=== PATIENT | female | born 2005 | race Caucasian/White ===

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

== ENCOUNTER 2023-03-06 09:04 | Outpatient (CLI) | payer OTHER | END 2023-03-06 09:05 | disposition home or self-care (01) | LOC: CSHULT 09:04 | PROVIDERS: ATTEND Family Medicine | DX: Z34.82 Encounter for supervision of other normal pregnancy, second trimester (principal); Z3A.20 20 weeks gestation of pregnancy | CPT/HCPCS: 76805 ==

== ENCOUNTER 2023-06-30 10:36 | Inpatient (IN) | payer OTHER ==
[2023-06-30] MEDS ORDERED: Tranexamic Acid 1,000 MG/10 ML VIAL IVP PRN (11:06)
[2023-06-30] MEDS ORDERED: Lidocaine 1% (PF) 30 ML VIAL SC PRN (11:06)
[2023-06-30] MEDS ORDERED: Ibuprofen 800 MG TAB PO PRN (11:06)
[2023-06-30] MEDS ORDERED: HYDROcodone/Acetaminophen 5/325 mg Tablet PO PRN ×2 (11:06→15:42)
[2023-06-30] MEDS ORDERED: Methylergonovine 0.2 MG/ML VIAL IM PRN (11:06)
[2023-06-30] MEDS ORDERED: Diphenoxylate HCl/Atropine Tablet PO PRN (11:06)
[2023-06-30] MEDS ORDERED: Acetaminophen 500 MG TAB PO PRN (11:06)
[2023-06-30] MEDS ORDERED: hydrALAZINE 20 MG/ML VIAL SLOW IVP PRN ×2 (11:06→15:42)
[2023-06-30] MEDS ORDERED: Carboprost 250 MCG/ML AMP IM PRN (11:06)
[2023-06-30] MEDS ORDERED: Misoprostol 200 MCG TAB PR PRN (11:06)
[2023-06-30] MEDS ORDERED: Ondansetron PF 4 MG/2 ML Vial IVP PRN ×2 (11:06→15:42)
[2023-06-30] MEDS ORDERED: fentaNYL 50 mcg/mL 1 mL Vial SLOW IVP PRN (11:06)
[2023-06-30] MEDS ORDERED: Promethazine HCl 25 MG/ML VIAL IM PRN ×2 (11:06→15:42)
[2023-06-30] MEDS ORDERED: Penicillin G Potassium 5 MILL.UNITS VIAL ONE (11:09)
[2023-06-30] MEDS ORDERED: Oxytocin 30 units/NS 500 ML 500 ML IV SCH (11:15)
[2023-06-30] MEDS ORDERED: Lactated Ringer's 1,000 ML IV SCH (11:15)
[2023-06-30] MEDS ORDERED: Penicillin G Potassium 5 MILL.UNITS in Sodium Chloride 0.9% 100 ML IVPB SCH (11:15)
[2023-06-30 11:27] VITALS: BMI 24.9
[2023-06-30 12:21] LABS: Syphilis Antibody Nonreactive (Nonreactive); Syphilis Antibody Index 0.05 S/CO (<1.00 Non-Reactive)
[2023-06-30 12:23] LABS: HBSAg Index 0.16 S/CO (0-0.99); Hep B Surf Ag - L&D Non-Reactive S/CO (NonReactive)
[2023-06-30 12:35] LABS: Hematocrit 34.4 % (34.9-44.5); Hemoglobin 11.1 g/dL (12.0-15.5); Mean Corpuscular HGB CONC 32.3 g/dL (32.0-36.0); Mean Corpuscular Hemoglobin 28.7 pg (27.0-33.0); Mean Corpuscular Volume 88.9 fl (81.6-98.3); Mean Platelet Volume 11.6 fl (7.4-10.4); Platelet Count 261 10x3/uL (150-450); RBC Distribution Width 14.9 % (11.5-14.5); Red Blood Cell (RBC) Count 3.87 10x6/uL (3.90-5.03); White Blood Cell (WBC) Count 10.3 10x3/uL (3.5-10.5)
[2023-06-30] MEDS ORDERED: Penicillin G 2.5 MILL.units 2.5 MILL.UNITS in Premix 1 BAG IVPB SCH (15:00)
[2023-06-30] MEDS ORDERED: Lanolin Ointment 7 GM TUBE TOP PRN (15:42)
[2023-06-30] MEDS ORDERED: Milk Of Magnesia 30 ML UDCUP PO PRN (15:42)
[2023-06-30] MEDS ORDERED: Boostrix 0.5 ML (Tdap) VIAL (>/=7 yrs of age) IM ONE (15:42)
[2023-06-30] MEDS ORDERED: diphenhydrAMINE 25 MG CAP PO PRN (15:42)
[2023-06-30] MEDS ORDERED: Benzocaine-Menthol 82.5 ML CAN TOP PRN (15:42)
[2023-06-30] MEDS ORDERED: Bisacodyl 10 MG SUPP PR PRN (15:42)
[2023-06-30] MEDS ORDERED: Preparation H Ointment 28 GM TUBE PR PRN (15:42)
[2023-06-30] MEDS: Ibuprofen 800 MG TAB PO SCH (18:28)
[2023-06-30] MEDS: Ferrous Sulfate 325 MG TAB PO SCH (18:31)
[2023-06-30] MEDS: Docusate 100 MG CAP PO SCH (21:10)
[2023-07-01] MEDS: Ibuprofen 800 MG TAB PO SCH ×4 (00:35→23:10)
[2023-07-01] MEDS: Ferrous Sulfate 325 MG TAB PO SCH ×2 (07:46→18:58)
[2023-07-01] MEDS: Prenatal Vitamin 1 TAB PO SCH (09:02)
[2023-07-01] MEDS: Docusate 100 MG CAP PO SCH ×2 (09:02→21:39)
[2023-07-02] MEDS: Ferrous Sulfate 325 MG TAB PO SCH (07:20)
[2023-07-02 07:51] VITALS: BP 113/64; TEMP 98.2
[2023-07-02] MEDS: Docusate 100 MG CAP PO SCH (07:51)
[2023-07-02] MEDS: Prenatal Vitamin 1 TAB PO SCH (07:51)
[2023-07-02] MEDS: Ibuprofen 800 MG TAB PO SCH (07:51)
== END 2023-07-02 11:10 | disposition home or self-care (01) | DRG 806 ==
LOC: CSHLD/OP 10:36 → CSHLD 11:50 → CSHPP 13:14
PROVIDERS: ADMIT Family Medicine; ATTEND Family Medicine
PROC: 10E0XZZ Delivery of Products of Conception, External Approach (ICD-10-PCS; principal; 2023-06-30)
PROC: 10907ZC Drainage of Amniotic Fluid, Therapeutic from Products of Conception, Via Natural or Artificial Opening (ICD-10-PCS; 2023-06-30)
PROC: 3E0234Z Introduction of Serum, Toxoid and Vaccine into Muscle, Percutaneous Approach (ICD-10-PCS; 2023-06-30)
DX: O99.824 Streptococcus B carrier state complicating childbirth (principal); O36.0130 Maternal care for anti-D [Rh] antibodies, third trimester, not applicable or unspecified; Z37.0 Single live birth; Z3A.36 36 weeks gestation of pregnancy
CPT/HCPCS: 36415; 85027; 85461; 86780; 86850; 86870; 86900; 86901; 87340; 90384; 96372; J2540; J2590

== ENCOUNTER 2024-01-22 00:28 | Emergency (ER) | payer OTHER ==
[2024-01-22] MEDS ORDERED: Neomycin/Polymyxin/HC Otic Solution 10 ML BOT ONE (01:28)
== END 2024-01-22 01:38 | disposition home or self-care (01) ==
LOC: CSHERS 00:28
DX: H62.41 Otitis externa in other diseases classified elsewhere, right ear (principal)
CPT/HCPCS: 99282